=== PATIENT | female | born 1975 | race African-American/Black ===

== ENCOUNTER 2018-03-15 06:27 | Outpatient (CLI) | payer OTHER ==
[2018-03-15 11:57] LABS: Hemoglobin 14.7 g/dL (12.0-16.0); Mean Corpuscular HGB CONC 32.3 g/dL (32.0-36.0); Mean Corpuscular Hemoglobin 32.4 pg (27.0-31.0); Mean Platelet Volume 8.2 fL (7.4-10.4); Platelet Count 273 thou/uL (130-400); RBC Distribution Width 12.2 % (11.5-14.5); Red Blood Cell (RBC) Count 4.53 mill/uL (4.20-5.40); White Blood Cell (WBC) Count 7.1 thou/uL (4.8-10.8)
[2018-03-15 12:03] LABS: Bilirubin Negative (Negative); Blood, Urine Negative (Negative); Clarity CLEAR (Clear); Glucose, Urine (Dipstick) Negative (Negative); Leukocyte Negative (Negative); Nitrite Negative (Negative); Protein, Urine (Dipstick) Negative (Neg-Trace); Specific Gravity, Urine 1.014 (1.002-1.036); pH, Urine 5.5 (5.0-9.0)
[2018-03-15 12:05] LABS: Bacteria/HPF None Seen HPF (None Seen); Hyaline Casts/LPF 0-3 HYALINE CAST LPF (0-3 Hyaline); Pathc Cast-AUWi Flag 0.58 (0-2.49); RBC/HPF 0-3 HPF (0-3); Squamous Epithelial 0-3 HPF (0-3); WBC/HPF None Seen HPF (0-3)
[2018-03-15 12:06] LABS: BHCG - Serum Negative (NEGATIVE); Pregs Control Background? CLEAR/WHITE (CLR/WHITE); Pregs Control Bar Appear? YES (CONTROL BAR)
== END 2018-03-15 06:28 | disposition home or self-care (01) ==
LOC: LABBT 06:27
PROVIDERS: ATTEND Obstetrics & Gynecology
DX: Z01.812 Encounter for preprocedural laboratory examination (principal); D25.9 Leiomyoma of uterus, unspecified; N92.0 Excessive and frequent menstruation with regular cycle
CPT/HCPCS: 81001; 84703; 85027; 87081

== ENCOUNTER 2018-03-19 09:56 | Observation (INO) | payer OTHER ==
[2018-03-15 10:11] VITALS: BMI 19.8
[2018-03-19] MEDS ORDERED: CEFAZOLIN 2 GM/50 ML BAG ONE (10:42)
[2018-03-19] MEDS ORDERED: Lidocaine 1% PF 5 ML VIAL ONE (11:38)
[2018-03-19] MEDS ORDERED: Dexamethasone 20 MG/5 ML VIAL ONE (11:38)
[2018-03-19] MEDS ORDERED: Glycopyrrolate 0.2 MG/ML 5 ML SYRINGE ONE (11:38)
[2018-03-19] MEDS ORDERED: Ondansetron PF 4 MG/2 ML Vial ONE (11:38)
[2018-03-19] MEDS ORDERED: Calcium Chloride 1 GM/10 ML Abboject SYRINGE ONE ×2 (11:38→12:40)
[2018-03-19] MEDS ORDERED: Rocuronium Bromide 10 MG/ML (10ML VIAL) ONE (11:38)
[2018-03-19] MEDS ORDERED: PROPOFOL 200 MG/20 ML VIAL ONE (11:38)
[2018-03-19] MEDS ORDERED: Bupivacaine HCl 0.5%/Epinephrine 1:200,000/PF 30 ml Vial ONE ×2 (12:40→16:35)
[2018-03-19] MEDS ORDERED: Thrombin 5000 UNITS/5 ML VIAL ONE (12:40)
[2018-03-19] MEDS ORDERED: Meperidine HCl/PF 25 MG/ML VIAL ONE (12:58)
[2018-03-19] MEDS ORDERED: Fentanyl 100 MCG/2 ML VIAL ONE ×3 (12:58→18:07)
[2018-03-19] MEDS ORDERED: Famotidine/PF 20 mg/2ml Vial ONE (12:58)
[2018-03-19] MEDS ORDERED: Simethicone Chewable 80 MG TAB PO PRN (17:06)
[2018-03-19] MEDS ORDERED: Zolpidem Tartrate 5 MG TAB PO PRN (17:06)
[2018-03-19] MEDS ORDERED: traMADol HCl 50 MG TAB PO PRN (17:06)
[2018-03-19] MEDS ORDERED: diphenhydrAMINE 25 MG CAP PO PRN (17:06)
[2018-03-19] MEDS ORDERED: Bisacodyl 10 MG SUPP PR PRN (17:06)
[2018-03-19] MEDS ORDERED: Ondansetron PF 4 MG/2 ML Vial IVP PRN (17:06)
[2018-03-19] MEDS ORDERED: Promethazine HCl 25 MG/ML VIAL SLOW IVP PRN (17:14)
[2018-03-19] MEDS ORDERED: Meperidine HCl/PF 25 MG/ML VIAL SLOW IVP PRN (17:14)
[2018-03-19] MEDS ORDERED: Morphine Sulfate 2 MG/ML SYRINGE SLOW IVP PRN (17:14)
[2018-03-19] MEDS ORDERED: PACU-Morphine 4MG/ML VIAL SLOW IVP PRN (17:14)
[2018-03-19] MEDS ORDERED: HYDROmorphone 2 MG/ML VIAL SLOW IVP PRN (17:14)
[2018-03-19] MEDS ORDERED: Ondansetron HCl/PF 4 MG/2 ML Vial IVP PRN (17:14)
[2018-03-19] MEDS ORDERED: Promethazine HCl 25 MG/ML VIAL IM PRN (17:14)
[2018-03-19] MEDS ORDERED: Morphine 4 MG/ML VIAL SLOW IVP PRN (17:30)
[2018-03-19] MEDS ORDERED: Promethazine HCl 25 MG/ML VIAL ONE (17:49)
[2018-03-19] MEDS ORDERED: Acetaminophen 1,000 MG in Premix Bag 1 BAG IVPB SCH (18:00)
[2018-03-19] MEDS: Acetaminophen 1,000 MG in Premix Bag 1 BAG IVPB SCH ×2 (18:51→23:20)
[2018-03-19] MEDS: Ketorolac Tromethamine 30 MG/ML VIAL IVP SCH ×2 (18:52→23:13)
[2018-03-19] MEDS: Lactated Ringer's 1,000 ML IV SCH (18:56)
[2018-03-19] MEDS: Ibuprofen 800 MG TAB PO SCH (18:57)
[2018-03-19] MEDS: Morphine 4 MG/ML VIAL SLOW IVP PRN ×2 (19:39→23:35)
[2018-03-20] MEDS: Lactated Ringer's 1,000 ML IV SCH ×2 (01:01→13:03)
[2018-03-20] MEDS: Morphine 4 MG/ML VIAL SLOW IVP PRN (03:55)
[2018-03-20 05:49] LABS: Mean Corpuscular HGB CONC 33.4 g/dL (32.0-36.0); Mean Corpuscular Hemoglobin 33.3 pg (27.0-31.0); Mean Corpuscular Volume 99.5 fL (78.0-98.0); Mean Platelet Volume 7.7 fL (7.4-10.4); Platelet Count 178 thou/uL (130-400); RBC Distribution Width 11.7 % (11.5-14.5); Red Blood Cell (RBC) Count 3.02 mill/uL (4.20-5.40); White Blood Cell (WBC) Count 10.7 thou/uL (4.8-10.8)
[2018-03-20] MEDS: Ketorolac Tromethamine 30 MG/ML VIAL IVP SCH ×2 (06:12→13:06)
[2018-03-20] MEDS: Acetaminophen 1,000 MG in Premix Bag 1 BAG IVPB SCH (06:14)
[2018-03-20] MEDS: Ibuprofen 800 MG TAB PO SCH ×2 (06:49→12:17)
[2018-03-20 12:01] VITALS: BP 127/71; TEMP 98.2
--- NOTE | 2018-03-23 06:23 | DIS ---
DATE OF ADMISSION: 03/19/2018 DATE OF DISCHARGE: 03/20/2018 ADMITTING DIAGNOSES: 1. Pelvic pain. 2. Menorrhagia. 3. Severe dysmenorrhea. 4. Uterine fibroids. DISCHARGE DIAGNOSES: 1. Pelvic pain. 2. Menorrhagia. 3. Severe dysmenorrhea. 4. Uterine fibroids. PROCEDURES: 1. Robotic hysterectomy. 2. Bilateral salpingectomy. 3. Autologous hemocyte tissue grafting (Plasmax). 4. Cystoscopy. DISCHARGE INSTRUCTIONS: 1. No heavy lifting greater than 10 to 15 pounds. 2. No driving on pain medications. 3. Pelvic rest x6 weeks (no intercourse, tissue, or tampons). 4. Notified physician if her temperature greater than 101.6, heavy vaginal bleeding or discharge, severe abdominal pain or back pain, signs or symptoms of incision infections. HOSPITAL COURSE: As follows: Ms. Debbie Giang was admitted to [facility] on Thursday03/19/2018, for scheduled hysterectomy. She was taken to the operating room on the afternoon of that day and underwent robotically-assisted laparoscopic hysterectomy, bilateral salpingectomy, Plasmax placement, and cystoscopy without problems or complications. Please see the operative report for summary. The patient had an uneventful and uncomplicated postoperative course. She requested discharge on the afternoon of the first postoperative day. At the time of discharge, she was ambulating, voiding, and tolerating p.o. well. She was given the above noted discharge instructions, which she verbalized understanding. She was sent home with prescriptions for Motrin 800 and Tylenol No. 3 and was given instructions for use. Her activity was limited and no heavy lifting greater than 15 pounds. She will follow up in 2 weeks for postoperative evaluation. Prior to discharge, the patient and her family reported that they were very satisfied and appreciative of the care she received at [facility] and will follow up as schedule. Job ID: [id number]
--- NOTE | 2018-03-23 10:37 | OP ---
DATE OF PROCEDURE: 03/19/2018 PREOPERATIVE DIAGNOSES: 1. Pelvic pain. 2. Menorrhagia. 3. Dysmenorrhea. 4. Uterine fibroids. POSTOPERATIVE DIAGNOSES: 1. Pelvic pain. 2. Menorrhagia. 3. Dysmenorrhea. 4. Uterine fibroids. PROCEDURES PERFORMED: 1. Robotic hysterectomy. 2. Bilateral salpingectomy. 3. Autologous hemocyte tissue grafting (Plasmax). 4. Cystoscopy. ANESTHESIA: General endotracheal. FINDINGS: 1. An 18-week size uterus with multiple fibroids. 2. Normal fallopian tubes and ovaries. 3. Normal bladder at postoperative cystoscopy. COMPLICATIONS: None. SPECIMENS REMOVED: Cervix, uterus, fallopian tubes, and fibroids. ESTIMATED BLOOD LOSS: 200 mL. DESCRIPTION OF PROCEDURE: After thorough consent and counseling, Ms. Giang was taken to the operating room and an adequate local anesthesia was obtained via general endotracheal anesthesia. The patient was placed in Henry Stirrups in low leg position. Pelvic examination under anesthesia was performed. Findings were consistent with that clinical setting. The patient was noted to have an enlarged uterus, which was palpable care home between the pubic symphysis and the umbilicus measuring 16 to 18 weeks in size. There were also several pedunculated fibroids, which were palpable. There were no adnexal masses noted. There was no fixation or nodularity in the posterior cul-de-sac. The patient was prepped and draped in usual sterile fashion for both vaginal and abdominal surgery. Attention was then turned performing the robotic hysterectomy. A weighted speculum was placed in the vaginal canal, and visualization of the cervix was obtained. A single-tooth tenaculum was placed on the anterior lip of the cervix for retraction. The uterus was sounded to 14 cm. Using Ram dilators, serial dilatation was performed. The KEVIN uterine manipulator was placed within the endometrial cavity, and the balloon was inflated. A stay LigaSure was placed on the cervix using 0 Vicryl suture at 3 o'clock and 9 o'clock position. The cervical collar of the manipulator was carefully seated around the cervix. The stay LigaSure was affixed to the manipulator. A Woodson was placed in the bladder, which was noted to be draining clear urine. The vaginal balloon was then inflated. Attention was turned to perform the laparoscopic portion of the surgery. An infraumbilical incision was made, and the Veress needle was placed transabdominally, and the usual safeguards were carried out. Hanging drop water technique was utilized to ensure proper placement of Veress needle. There was no evidence of any bladder or bowel injury. Using CO2 gas as insufflation medium and the auto insufflator, an adequate pneumoperitoneum was obtained. A 12-mm trocar and sleeve were carefully placed transabdominally with usual safeguards carried out. The da Catapult laparoscopic camera was then placed transabdominally, and visualization of the upper abdomen was obtained. There was no evidence of any bowel injury upon placement of the trocar or the Veress needle. Careful inspection of the pelvis was then performed. The large fibroids could then be easily visualized. The uterus was elevated out of the pelvis, and the ovaries appeared normal. As outlined, the uterus and fibroid measured approximately 16 to 18 weeks in size. Using illumination technique, lateral ports were placed. I then of surgical consult. Under direct laparoscopic visualization, the robotic instruments were carefully introduced into the pelvis. The instrumentation used to perform the hysterectomy included the Kleppinger Bipolar Forceps and the electrosurgical Endoshears. The uterus was carefully elevated out of the pelvis, and the anatomy was identified. A 6-cm pedunculated fibroid was identified and was removed from the stalk. The fibroid was placed in the posterior cul-de-sac. The crossclamped, coagulated, and transected. The dissection was carried down the mesosalpinx to the tubo-ovarian ligament. The tubo-ovarian ligament vessels were crossclamped, coagulated, and transected. The right fallopian tube was removed from the operative field. The same procedure was performed on the left. The tubo-ovarian ligament vessels were then carefully isolated, crossclamped, coagulated, and transected. The same procedure was performed on the left. Using the same technique, serial pedicles were taken through the broad ligament - cardinal ligament complex down to the level of the uterine vessels. The vesicouterine peritoneum was carefully and meticulously taken down anteriorly and inferiorly creating a bladder flap. The bladder was pushed bilaterally in operative planes down to the level that the cervical collar could easily be identified. The uterus was carefully identified on the pelvic sidewall and noted to be traversing out of the operative planes. The uterine vessels were skeletonized bilaterally. The endopelvic fascia was then circumscribed. The vagina was then entered sharply using the electrosurgical Endoshears. The cervix and uterus were removed from the remainder of the support structures. Because of the size of the uterus, it was cored and removed from the vagina in pieces. Once the complete coring was removed and the cervix and uterus were removed from the operative field, the remaining fibroids which were in the posterior cul-de-sac were carefully introduced into the vagina to maintain the pneumoperitoneum. The vagina cuff was then closed with a running locking 0 Vicryl V-Loc ligature. Good cuff closure was noted. All surgical sites were carefully examined, noted to be hemostatic. The uterus was again identified on the pelvic sidewalls and noted to be traversing out of the operative field. Because of the extensive dissection and removal of the large fibroids, autologous hemocyte tissue grafting was performed. Platelet-poor plasma was injected over all sides to prevent further adhesions. A decision was made to proceed with postoperative cystoscopy. The Woodson was removed from the bladder, and the cystoscope was carefully placed. Warm normal saline was used as an insufflation medium. The landmarks of the bladder were identified including the ureteral orifices, the base and trigone of the bladder as well as the dome. There was no evidence of any inadvertent bladder injury. The cystoscope was removed, and the Woodson was replaced. The patient was given an amp of indigo carmine to ensure ureteral integrity, which was confirmed. The instruments and gases were removed from the abdomen. The umbilical fascia was closed with a fascial stitch in a [id number] manner using 2-0 Vicryl suture and a suture passer. The remainder of the incisions were closed in a subcutaneous stitch of 2-0 plain and a subcuticular stitch of 4-0 Monocryl. Each incision was then dressed with Dermabond. A pack was placed in the vagina. The bladder was noted to be draining good urine. Lap, sponge, and needle counts were correct x3. Estimated blood loss from the surgical procedure was approximately 200 mL. The patient was awaken and taken to the recovery room in good condition. Immediately following the surgery, the patient and family were made aware of the surgical procedure and operative findings. Questions were answered to their satisfaction. Job ID: [id number]
== END 2018-03-20 16:35 | disposition home or self-care (01) ==
LOC: SDC 09:56 → EDSTATUS 15:25 → 3SE 18:17
PROVIDERS: ADMIT Obstetrics & Gynecology; ATTEND Obstetrics & Gynecology
PROC: 0UT94ZZ Resection of Uterus, Percutaneous Endoscopic Approach (ICD-10-PCS; principal; 2018-03-19)
PROC: 0UT74ZZ Resection of Bilateral Fallopian Tubes, Percutaneous Endoscopic Approach (ICD-10-PCS; 2018-03-19)
DX: N72 Inflammatory disease of cervix uteri (principal); D25.9 Leiomyoma of uterus, unspecified; Z88.5 Allergy status to narcotic agent
CPT/HCPCS: 36415; 85027; 88307; 96361; 96374; 96375; 96376; G0378; J0131; J0670; J1100; J1885; J2001; J2175; J2270; J2405; J2550; J2704; J3010; J7620; Q9968; S0028

== ENCOUNTER 2022-03-28 12:23 | Emergency (ER) | payer OTHER ==
[2022-03-28 12:51] LABS: #Lymphocytes 1.6 thou/uL (1.20-3.40); #Monocytes 0.6 thou/uL (0.11-0.59); #Neutrophils 6.9 thou/uL (1.40-6.50); %Basophils 0.2 % (0.0-1.0); %Eosinophils 0.3 % (0.0-10.0); %Lymphocytes 17.5 % (21.0-51.0); %Monocytes 6.7 % (0.0-10.0); %Neutrophils 75.2 % (42.0-75.0); Hemoglobin 16.8 g/dL (12.0-16.0); Mean Corpuscular HGB CONC 34.5 g/dL (32.0-36.0); Mean Corpuscular Hemoglobin 33.6 pg (27.0-31.0); Mean Corpuscular Volume 97.1 fl (78.0-98.0); Platelet Count 337 10x3/uL (130-400); RBC Distribution Width 11.8 % (11.5-14.5); Red Blood Cell (RBC) Count 5.02 mill/uL (4.20-5.40); White Blood Cell (WBC) Count 9.2 10x3/uL (4.8-10.8)
[2022-03-28 13:14] LABS: ALT (SGPT) 47 U/L (8-55); AST (SGOT) 54 U/L (5-34); Albumin 4.4 g/dL (3.5-5.0); Alkaline Phosphatase 125 U/L (40-110); Anion Gap 17 mmol/L (10-20); BUN (Urea Nitrogen) 10 mg/dL (7.0-18.7); Bilirubin, Total 0.8 mg/dL (0.2-1.2); Calc. Creatinine Clearance 0 mL/min (70-130); Carbon Dioxide 28 mmol/L (22-29); Chloride 92 mmol/L (98-107); Estimated GFR 84; Globulin 4.4 g/dL (2.4-3.5); Glucose 113 mg/dL (70-105); Potassium 3.3 mmol/L (3.5-5.1); Protein, Total 8.8 g/dL (6.0-8.3); Sodium 134 mmol/L (136-145)
[2022-03-28] MEDS ORDERED: Dicyclomine 20 MG/2 ML VIAL ONE (16:13)
[2022-03-28] MEDS ORDERED: Ondansetron PF 4 MG/2 ML Vial ONE (16:13)
[2022-03-28] MEDS ORDERED: Potassium Chloride 20 MEQ TAB ONE (16:30)
[2022-03-28] MEDS ORDERED: Magnesium 2 GM/50 ML BAG (IN WATER) ONE (16:30)
[2022-03-28 16:58] LABS: BHCG - Serum Negative (NEGATIVE); Pregs Control Background? CLEAR/WHITE (CLR/WHITE); Pregs Control Bar Appear? YES (CONTROL BAR)
[2022-03-28 17:40] LABS: Magnesium 2.1 mg/dL (1.6-2.6)
[2022-03-28 17:41] LABS: CK (CPK) 68 U/L (29-168); Lipase 24 U/L (8-78)
[2022-03-28 18:12] LABS: Bacteria/HPF None Seen HPF (None Seen); Bilirubin Negative (Negative); Blood, Urine Negative (Negative); Clarity Clear (Clear); Glucose, Urine (Dipstick) Normal (Negative); Ketone, Urine 60 mg/dL (Negative); Leukocyte Negative Leu/uL (Negative); Nitrite Negative (Negative); Protein, Urine (Dipstick) 30 mg/dL (Neg-Trace); RBC/HPF 0-3 HPF (0-3); Specific Gravity, Urine 1.016 (1.002-1.036); Squamous Epithelial 0-3 HPF (0-3); Urobilinogen 3 mg/dL (Less than 2); WBC/HPF 0-3 HPF (0-3); pH, Urine 6.5 (5.0-9.0)
[2022-03-28] MEDS ORDERED: Promethazine HCl 12.5 MG in Sodium Chloride 0.9% 50 ML IVPB SCH (19:00)
[2022-03-28] MEDS ORDERED: Prochlorperazine 10 MG/2 ML VIAL IVP SCH (21:00)
== END 2022-03-28 22:18 | disposition home or self-care (01) ==
LOC: ERS 12:23
DX: R55 Syncope and collapse (principal); R19.7 Diarrhea, unspecified; R11.2 Nausea with vomiting, unspecified; F17.210 Nicotine dependence, cigarettes, uncomplicated; Z20.822 Contact with and (suspected) exposure to COVID-19
CPT/HCPCS: 36415; 80053; 81003; 81015; 82550; 83605; 83690; 83735; 84703; 85025; 87804; 93005; 94760; 96361; 96365; 96367; 96372; 96375; J0780; J2405; J2550; J3475; U0003; U0005